=== PATIENT | male | born 1995 | race Two or more races ===

== ENCOUNTER 2025-03-29 09:18 | Day surgery (SDC) | payer SELFPAY ==
[~2025-03-29 09:18] MED LIST: Sodium Chloride 0.9% 10 ML Syringe FLUSH PRN; Sodium Chloride 0.9% 10 ML Syringe FLUSH SCH
[2025-03-29] MEDS: Lactated Ringers 1,000 ML IV SCH (09:40)
[2025-03-29] MEDS ORDERED: Midazolam 1 MG/ML 2 ML SDV ONE (10:06)
[2025-03-29] MEDS ORDERED: fentaNYL 100 MCG/2 ML SDV ONE (10:06)
[2025-03-29] MEDS ORDERED: dexmedeTOMIDine HCl 200 MCG/2 ML SDV ONE (10:07)
[2025-03-29] MEDS ORDERED: Ropivacaine 0.5% 5 MG/ML 30 ML SDV ONE (10:07)
[2025-03-29] MEDS ORDERED: Propofol 200 MG/20 ML SDV ONE (10:55)
== END 2025-03-29 12:00 | disposition home or self-care (01) ==
LOC: JD.SDS 09:18
PROVIDERS: ATTEND Orthopaedic Surgery
DX: S62.314A Displaced fracture of base of fourth metacarpal bone, right hand, initial encounter for closed fracture (principal); S62.316A Displaced fracture of base of fifth metacarpal bone, right hand, initial encounter for closed fracture
CPT/HCPCS: 26608; 64450; 76000; J2250; J2704; J2795; J3010; J7120; 01820; J0665